=== PATIENT | male | born 1945 | race Caucasian/White ===

== ENCOUNTER 2018-10-05 13:50 | Inpatient (IN) | payer OTHER ==
[~2018-10-05] VITALS: Ht 170.2 cm; Wt 89.8 kg
[2018-10-05 14:00] VITALS: BP 158/105
--- NOTE | 2018-10-05 14:00 | NUR ---
PATIENT TAKEN TO BED #5
--- NOTE | 2018-10-05 14:25 | NUR ---
BIB FAMILY WITH C/O NON RADIATING LT SIDED CP WITH COUGH X 3 DAYS HX: DM TAKING METFORMIN 500MG. PO BID,INSULIN 35 UNITS SUBQ. DAILY
[2018-10-05] MEDS ORDERED: NACL 0.9% 1,000 ML IV SCH (14:33)
[2018-10-05] MEDS ORDERED: PIPERACILLIN/TAZOBACTAM 3.375 GM in DEXT 5% MINI-BAG PLUS 50 ML IV ONE (14:35)
[2018-10-05] MEDS ORDERED: methylPREDNISolone SS 125 MG/2 ML VIAL IVP ONE (14:35)
[2018-10-05 14:38] LABS: BASOPHILS # (AUTO) 0.1 K/uL (0.00-0.22); BASOPHILS % (AUTO) 0.9 % (0.0-2.0); EOSINOPHILS # (AUTO) 0.2 K/uL (0-0.4); EOSINOPHILS % (AUTO) 1.2 % (0.0-4.0); HEMATOCRIT 41.6 % (36-52); HEMOGLOBIN 13.9 g/dL (12.0-18.0); LYMPHOCYTES % (AUTO) 14.3 % (20.5-51.1); MEAN CORPUSCULAR HEMOGLOBIN 30 pg (27-31); MEAN CORPUSCULAR HGB CONC 33 g/dL (33-37); MEAN CORPUSCULAR VOLUME 90.7 fL (80-94); MONOCYTES % (AUTO) 7.6 % (1.7-9.3); NEUTROPHILS # (AUTO) 10.4 K/uL (1.8-7.7); PLATELET COUNT (AUTO) 315 K/uL (140-450); RED BLOOD CELL COUNT(AUTO) 4.58 MIL/uL (4.20-6.10); RED CELL DISTRIBUTION WIDTH 13.7 % (11.6-13.7); WHITE BLOOD COUNT (AUTO) 13.7 K/uL (4.8-10.8)
[2018-10-05 14:44] LABS: ANION GAP 10.8 (8-16); CARBON DIOXIDE 26.1 mmol/L (21-32); CHLORIDE 101 mmol/L (98-107); CREATININE 1.1 mg/dL (0.7-1.3); GLUCOSE 185 mg/dL (74-106); POTASSIUM 3.9 mmol/L (3.5-5.1); SODIUM SERUM 134 mmol/L (136-145); UREA NITROGEN, BLOOD 16 mg/dL (7-18)
[2018-10-05 14:50] LABS: ALBUMIN 3.6 g/dL (3.4-5.0); ASPARTATE AMINOTRANSFERASE 16 U/L (15-37)
[2018-10-05] MEDS ORDERED: PIPERACILLIN/TAZOBACTAM 3.375 GM VIAL IV ONE (15:02)
[2018-10-05] MEDS ORDERED: methylPREDNISolone SS 125 MG/2 ML VIAL ONE (15:05)
--- NOTE | 2018-10-05 15:10 | NUR ---
1000 ML BULOS OF 0.9% NS GIVEN AT RT AC 20G
--- NOTE | 2018-10-05 15:11 | NUR ---
1511: 125 MB SOLUMEDROL GIVEN VIA IV ON RT AC 20G 1514: 3.375 ZOSYN MIXED WITH 5% D5 50 ML AT 100ML/HR GIVEN VIA RT AC 20G
[2018-10-05 15:20] LABS: PROTHROMBIN TIME 11.4 secs (10.8-13.4)
--- NOTE | 2018-10-05 16:00 | NUR ---
PT NOTIFIED OF BEING ADMITTED, VSS, SPEAKING FULL SENTENCES MINIMAL CP, DENIES DIZZINESS, TRUJILLO, OR N/V
[2018-10-05 18:02] LABS: APPEARANCE,URINE CLEAR (CLEAR); BILIRUBIN,URINE NEGATIVE (NEGATIVE); BLOOD, URINE NEGATIVE (NEGATIVE); COLOR,URINE YELLOW (YELLOW); LEUKOCYTE ESTERASE ,URINE NEGATIVE (NEGATIVE); NITRITE, URINE NEGATIVE (NEGATIVE); PH,URINE 6.5 (5.0-9.0); UGLUCOSE NEGATIVE (NEGATIVE)
--- NOTE | 2018-10-05 18:55 | NUR ---
AAO PT WITH SON AT BEDSIDE NOTIFIED OF WAITING FOR ROOM FOR PENDING ADMIT
[2018-10-05] MEDS ORDERED: METF500T PO (19:00)
--- NOTE | 2018-10-05 19:30 | NUR ---
Patient will be admitted to care of DR BENTLEY. Admited to TELE. Will go to room 104-B. Belongings list completed. Report to KIERRA GRAY.
--- NOTE | 2018-10-05 19:30 | NUR ---
RECEIVED REPORT FROM SAMPLE GRADER. PT IS A&OX4. ERITREAN SPEAKING ONLY. SON IS AT BEDSIDE. RESPIRATIONS ARE EQUAL AND UNLABORED. HAS COUGH NON PRODUCTIVE. IV ON R AC 20G SALINE LOCK. PT IS AMBULATORY HAS STEADY GAIT. SKIN IS INTACT. DENIES SOB OR PAIN AT THIS TIME. PLAN OF CARE WAS DISCUSSED. ORIENTED PATIENT TO ROOM. SAFETY MEASURES IN PLACE. VITAL SIGNS WITHIN NORMAL LIMITS. WILL CONTINUE TO MONITOR.
[2018-10-05 20:00] VITALS: BP 127/77
[2018-10-05] MEDS ORDERED: HYDROcodone/APAP 5/325 MG 1 TAB TAB PO PRN (20:25)
[2018-10-05] MEDS ORDERED: DEXTROSE 50% 50 ML SYR IVP PRN (20:25)
[2018-10-05] MEDS: BLOOD GLUCOSE MONITORING 1 DEV DEV FS SCH (21:00)
[2018-10-05] MEDS ORDERED: VANCOMYCIN 1,000 MG VIAL ONE (21:55)
[2018-10-05] MEDS ORDERED: VANCOMYCIN 1,500 MG in DEXTROSE 5% 500 ML IV SCH (22:00)
[2018-10-05] MEDS: VANCOMYCIN 1,500 MG in NACL 0.9% 250 ML IV SCH (22:05)
--- NOTE | 2018-10-05 22:05 | NUR ---
VANCO NOW INFUSING PER ORDERS. INSULIN GIVEN. OFFERED PT A SANDWICH. CALL LIGHT WITHIN REACH WILL CONTINUE TO MONITOR.
[2018-10-05] MEDS: INSULIN LISPRO SLIDING SCALE 100 UNITS/ML VIAL SUBQ PRN (22:07)
[2018-10-06] VITALS: BP 130/87
[2018-10-06] MEDS ORDERED: VANCOMYCIN 1GM/DEXT 5% PREMIX 200 ML IV SCH
--- NOTE | 2018-10-06 | NUR ---
VITAL SIGNS ARE WITHIN NORMAL LIMITS. DENIES SOB OR PAIN. ALL NEEDS MET AT THIS TIME WILL CONTINUE TO MONITOR
[2018-10-06] MEDS: PIPER/TAZO 3.375GM/D5W PREMIX 50 ML IV SCH ×2 (00:33→05:20)
[2018-10-06] MEDS ORDERED: PIPERACILLIN/TAZOBACTAM 3.375 GM VIAL IV ONE ×2 (00:34→05:14)
--- NOTE | 2018-10-06 01:36 | NUR ---
PT SLEEPING RESPIRATIONS ARE EQUAL AND UNLABORED. CALL LIGHT WITHIN REACH.
--- NOTE | 2018-10-06 03:27 | NUR ---
PT SLEEPING NO S/S OF DISTRESS. CALL LIGHT WITHIN REACH.
[2018-10-06 04:00] VITALS: BP 141/85
[2018-10-06] MEDS ORDERED: PNEUMOCOCCAL VACCINE 23 MCG/0.5 ML VIAL IMVAC PRN (05:50)
[2018-10-06] MEDS: BLOOD GLUCOSE MONITORING 1 DEV DEV FS SCH ×3 (06:15→17:27)
[2018-10-06] MEDS: INSULIN LISPRO SLIDING SCALE 100 UNITS/ML VIAL SUBQ PRN ×3 (06:15→17:31)
--- NOTE | 2018-10-06 07:15 | NUR ---
ENDORSED PT TO DAY SHIFT RN. PT IN STABLE CONDITION.
--- NOTE | 2018-10-06 07:16 | NUR ---
RECEIVED BEDSIDE REPORT FROM ROLLING ATTENDANT NURSE. PATIENT IS AWAKE, ALERT AND ORIENTEDX4. NO SIGNS OF DISTRESS ON RA. NEPALI SPEAKER. GAIT IS STEADY, AMBULATORY. CONTINENT. SKIN IS INTACT. TELE MONITOR IN PLACE. R AC 20G SALINE LOCK. CLEAN, DRY AND INTACT. BED IN LOW POSITION. CALL LIGHT WITHIN REACH. WILL CONTINUE TO MONITOR
[2018-10-06 08:00] VITALS: BP 133/86
--- NOTE | 2018-10-06 08:15 | NUR ---
PATIENT HAS BEEN SCREENED AND CATEGORIZED MODERATE NUTRITION RISK. PATIENT WILL BE SEEN WITHIN 3-5 DAYS OF ADMISSION. 10/08/18YOLIS [address]
--- NOTE | 2018-10-06 09:00 | NUR ---
DAUGHTER CALLED TO ASK ABOUT PATIENT. GAVE HER AN UPDATE. SHE SAID SHE WILL VISIT SOON.
[2018-10-06] MEDS ORDERED: DEXTROSE 50% 50 ML SYR IVP PRN (10:00)
[2018-10-06] MEDS ORDERED: INSULIN LISPRO SLIDING SCALE 100 UNITS/ML VIAL SUBQ PRN (10:00)
[2018-10-06] MEDS ORDERED: ALBUTEROL 0.083% 2.5 MG/3 ML NEBU INH PRN (10:05)
--- NOTE | 2018-10-06 10:10 | NUR ---
RECEIVED TELEPHONE CONSENT FROM EDWARD WILHELM, PATIENTS BROTHER. CHARGE NURSE ANA WAS THE SECOND WITNESS. Addendum: 10/06/18 at 1023 by So Arnold RN WRONG PATIENT
--- NOTE | 2018-10-06 10:22 | NUR ---
ADMINISTERED MEDS. PATIENT TOLERATED WELL. WILL CONTINUE TO MONITOR THE PATIENT. Addendum: 10/06/18 at 1024 by So Arnold RN WRONG PATIENT
[2018-10-06] MEDS ORDERED: LEVOFLOXACIN 500 MG/D5W PREMIX 100 ML IV SCH (11:00)
--- NOTE | 2018-10-06 11:01 | NUR ---
ADMINISTERED MEDS. PATIENT TOLERATED WELL. WILL CONTINUE TO MONITOR
[2018-10-06] MEDS ORDERED: BLOOD GLUCOSE MONITORING 1 DEV DEV FS SCH (11:30)
[2018-10-06 12:00] VITALS: BP 136/82
--- NOTE | 2018-10-06 12:13 | NUR ---
FAMILY AT BEDSIDE. PATIENT IN NO DISTRESS. WILL CONTINUE TO MONITOR THE PATIENT
[2018-10-06] MEDS: BENZONATATE 100 MG CAPLF PO SCH ×2 (12:23→17:32)
--- NOTE | 2018-10-06 12:26 | NUR ---
ADMINISTERED MEDS. PATIENT TOLERATED WELL. WILL CONTINUE TO MONITOR THE PATIENT
[2018-10-06 13:33] LABS: CREATINE KINASE MB 1.9 ng/mL (0-3.6)
--- NOTE | 2018-10-06 14:58 | NUR ---
PATIENT IN NO DISTRESS. RESTING IN BED. FAMILY AT BEDSIDE. WILL CONTINUE TO MONITOR THE PATIENT.
[2018-10-06 16:00] VITALS: BP 141/88
[2018-10-06] MEDS ORDERED: metFORMIN 500 MG TAB PO SCH (17:00)
[2018-10-06 17:28] LABS: CREATINE KINASE MB 1.9 ng/mL (0-3.6)
--- NOTE | 2018-10-06 17:35 | NUR ---
ADMINISTERED MEDS. PATIENT TOLERATED WELL. WILL CONTINUE TO MONITOR
[2018-10-06] MEDS ORDERED: BENZ100C6 PO (18:17)
[2018-10-06] MEDS ORDERED: LEVO500T2 PO (18:17)
[2018-10-06] MEDS ORDERED: LEVO750T2 PO (18:19)
--- NOTE | 2018-10-06 18:40 | NUR ---
ADMINISTERED PNA VACCINE. PATIENT REFUSED FLU. PATIENT TOLERATED WELL. REMOVED ID BANDS AND IV. TIP INTACT. TELE MONITOR REMOVED. EDUCATED ON DISEASE PROCESS, FOLLOW UP W PCP, EDUCATED ON MEDS, MEDS SENT ELECTRONICALLY TO PHARMACY, EDUCATED ON ABN S/SX AND WHEN TO GO TO THE ER. PATIENT VERBALIZED UNDERSTANDING. ALL PAPERWORK SIGNED. PATIENT LEFT IN STABLE CONDITION WALKING
[2018-10-07] MEDS ORDERED: LISINOPRIL 5 MG TAB PO SCH (09:00)
== END 2018-10-06 18:51 | disposition home or self-care (01) | DRG 720 ==
LOC: MED 13:50 → MTU 18:57
PROVIDERS: ADMIT Internal Medicine; ATTEND Internal Medicine
PROC: 3E0234Z Introduction of Serum, Toxoid and Vaccine into Muscle, Percutaneous Approach (ICD-10-PCS; principal; 2018-10-06)
DX: A41.9 Sepsis, unspecified organism (principal); J18.9 Pneumonia, unspecified organism; E11.9 Type 2 diabetes mellitus without complications; I11.9 Hypertensive heart disease without heart failure; J20.9 Acute bronchitis, unspecified; E66.9 Obesity, unspecified; J98.11 Atelectasis; E78.5 Hyperlipidemia, unspecified; Z68.31 Body mass index [BMI] 31.0-31.9, adult; Z90.49 Acquired absence of other specified parts of digestive tract; Z23 Encounter for immunization
CPT/HCPCS: 36415; 36600; 71045; 80053; 81003; 82550; 82553; 82803; 82948; 83605; 83735; 83880; 84484; 85025; 85610; 85730; 87040; 87081; 87086; 87804; 90732; 93005; 96365; 96375; 99285; J1815; J1956; J2543; J2930; J3370; J7030; J7060; Q0092